=== PATIENT | female | born 1960 | race Caucasian/White ===

== ENCOUNTER 2016-12-04 14:05 | Emergency (ER) | payer OTHER ==
--- NOTE | 2016-12-04 14:33 | C.PDOC ---
History Of Present Illness 56 yo female, deaf, presents to the ED from her doctors office for xrays. As per patient, 3 days ago, she tripped and fell on her left knee and left hand landing on a metal frame. She went to her PMD today and they irrigated and cleaned her wound and put steri strips on her wound. They then sent her here for xrays. Patient has mild pain. No numbness or weakness. No head, neck, back or other injuries. She does not know her last tetanus status. She is able to walk with no ataxia. PMD: Dr. Scott Time Seen by Provider: 12/04/16 14:16 Chief Complaint (Nursing): Lower Extremity Problem/Injury History Per: Patient, Family (mom gives history because patient is deaf) Past Medical History Reviewed: Historical Data Vital Signs: Last Vital Signs Temp 98.6 F 12/04/16 14:08 Pulse 75 12/04/16 14:08 Resp 16 12/04/16 14:08 BP 116/65 12/04/16 14:08 Pulse Ox 97 12/04/16 14:55 - Medical History PMH: Hyperlipidemia Family History: States: Unknown Family Hx - Social History Hx Alcohol Use: No Hx Substance Use: No - Immunization History Hx Tetanus Toxoid Vaccination: No Hx Influenza Vaccination: No Hx Pneumococcal Vaccination: No Review Of Systems Musculoskeletal: Positive for: Shoulder Pain (left shoulder pain), Arm Pain ( left wrist pain), Leg Pain (left knee pain) Physical Exam - Physical Exam Appears: Well, Non-toxic Skin: Other (healing skin avulsions/laceration to left knee; surrounding erythema and warmth approx 3 inch irregular diameter) Head: Atraumatic Eye(s): bilateral: Normal Inspection, PERRL, EOMI Nose: Normal Oral Mucosa: Moist Tongue: Normal Appearing Teeth: Normal Dentition Neck: Normal, No Midline Cervical Tenderness Chest: Symmetrical Cardiovascular: Rhythm Regular Back: Normal Inspection, No Vertebral Tenderness, No Decreased ROM, No Muscle Spasm Extremity: Tenderness (left shoulder anterior worse with movement; left wrist mild tenderness; left knee with mild tenderness), No Swelling, Other (left 2.5cm laceration/partial skin avulsion with healing tissue, no active bleeding, some surrounding erthema, no swelling) Pulses: Left Radial: Normal, Right Radial: Normal Neurological/Psych: Oriented x3, Normal Speech Gait: Steady ED Course And Treatment O2 Sat by Pulse Oximetry: 97 (RA) Pulse Ox Interpretation: Normal - Other Rad Left Knee XR X-Ray: Viewed By Me, Read By Radiologist Interpretation: IMPRESSION: No evidence of acute fracture or dislocation. Mild osteoarthritis. Medical Decision Making Medical Decision Makin yo female s/p fall with left knee avulsion/laceration already healed r/o fracture; left wrist/shoulder injury r/o fracture; early signs of cellulitis developing on left knee -- Motrin, Tetanus, Keflex -- Xrays 3:10 - Xrays negative. There is some early cellulitis that is developing. Patient will take keflex as instructed and follow up with her primary care doctor in 2-3days. Advised to return tot he ED if symptoms worsen or any other concern. Disposition Counseled Patient/Family Regarding: Studies Performed, Diagnosis, Need For Followup, Rx Given - Disposition Referrals: Reinier Scott MD [Medical Doctor] - Disposition: HOME/ ROUTINE Disposition Time: 15:09 Condition: IMPROVED Additional Instructions: Ms Naranjo, thank you for letting us take care of you today. Your provider was Dr. Cardenas. You were treated for Knee laceration/skin avulsion with cellulitis , Shoulder Strain, Wrist Strain. The emergency medical care you received today was directed at your acute symptoms. If you were prescribed any medication, please fill it and take as directed. It may take several days for your symptoms to resolve. Return to the Emergency Department if your symptoms worsen, do not improve, or if you have any other problems. Please contact your doctor or call one of the physicians/clinics you have been referred to that are listed on the Patient Visit Information form that is included in your discharge packet. Bring any paperwork you were given at discharge with you along with any medications you are taking to your follow up visit. Our treatment cannot replace ongoing medical care by a primary care provider (PCP) outside of the emergency department. Thank you for allowing the [facility] team to be part of your care today. If you had an X-Ray or CT scan: A Radiologist will review the ED reading if any change in treatment is needed we will contact you. If you had a blood, urine, or wound culture: It will take several days for the results, if any change in treatment is needed we will contact you. If you had an STI test: It will take 48 hours for the results. Please call after 1 week if you have not heard back. Prescriptions: Cephalexin [cephalexin] 500 mg PO Q6 #28 cap Ibuprofen [Motrin] 600 mg PO Q6 PRN #30 tab PRN Reason: Pain, Moderate (4-7) Instructions: Knee Pain (ED), Wrist Injury (ED), Rotator Cuff Injury (ED), Laceration (ED), Cellulitis (ED) Forms: Gen Discharge Inst Kyrgyz Print Language: PERSIAN - POA Present On Arrival: None - Clinical Impression Clinical Impression: Knee injury, Shoulder strain, Wrist strain, Cellulitis, Laceration
--- NOTE | 2016-12-04 14:40 | RAD ---
PROCEDURE: Left Knee Radiographs. HISTORY: Pain. COMPARISON: None. FINDINGS: BONES: Normal. No fracture. JOINTS: Mild osteoarthritis. JOINT EFFUSION: None. OTHER FINDINGS: None. IMPRESSION: No evidence of acute fracture or dislocation. Mild osteoarthritis.
--- NOTE | 2016-12-04 15:09 | RAD ---
PROCEDURE: Left Wrist Radiographs. HISTORY: fall r/o fx COMPARISON: None. FINDINGS: BONES: No evidence of acute fracture. JOINTS: Normal. No dislocation. SOFT TISSUES: Mild soft tissue swelling seen. OTHER FINDINGS: None. IMPRESSION: No evidence of acute fracture or dislocation.
--- NOTE | 2016-12-04 15:10 | RAD ---
PROCEDURE: Radiographs of the Left Shoulder HISTORY: fall r/o fx COMPARISON: No prior. FINDINGS: BONES: Normal. No fracture. JOINTS: Normal. Glenohumeral and acromioclavicular joints preserved. No osteoarthritis. SOFT TISSUES: Normal. OTHER FINDINGS: None. IMPRESSION: Normal radiographs of the left shoulder.
[2016-12-04 15:11] VITALS: BP 121/74; PULSE 65; RESP 20; TEMP 97.5
[2016-12-04 15:14] VITALS: O2SAT 97
== END 2016-12-04 15:13 | disposition home or self-care (01) ==
LOC: C.ER 14:05
DX: S81.012A Laceration without foreign body, left knee, initial encounter (principal); L03.116 Cellulitis of left lower limb; S66.912A Strain of unspecified muscle, fascia and tendon at wrist and hand level, left hand, initial encounter; S46.912A Strain of unspecified muscle, fascia and tendon at shoulder and upper arm level, left arm, initial encounter; W01.0XXA Fall on same level from slipping, tripping and stumbling without subsequent striking against object, initial encounter; Y92.9 Unspecified place or not applicable